=== PATIENT | female | born 1970 | race African-American/Black ===

== ENCOUNTER 2022-07-17 09:56 | Inpatient (IN) | payer OTHER ==
[2022-07-17] MEDS: ELECTROLYTE-148 SOLN 1,000 ML IV SCH (10:30)
[2022-07-17 11:38] VITALS: BMI 35.2
[2022-07-17] MEDS ORDERED: ONDANSETRON 4 MG/2 ML VIAL IVPUSH PRN (14:24)
[2022-07-17] MEDS ORDERED: FENTANYL CITRATE/PF 50 MCG/ML VIAL ONE (14:33)
[2022-07-17] MEDS ORDERED: morphine SULFATE (PF) 1 MG/2 ML SYRINGE ONE (14:33)
[2022-07-17] MEDS ORDERED: ceFAZolin SODIUM 1 GM VIAL ONE (14:52)
[2022-07-17] MEDS ORDERED: ONDANSETRON 4 MG/2 ML VIAL ONE (14:54)
[2022-07-17] MEDS ORDERED: OXYTOCIN 10 UNITS/ML VIAL ONE ×2 (15:02→15:36)
[2022-07-17] MEDS ORDERED: CITRIC ACID/SODIUM CITRATE 30 ML UNIT-DOSE CUP PO ONE (16:09)
[2022-07-17] MEDS ORDERED: ACETAMINOPHEN 325 MG TABLET (FP) PO PRN (16:11)
[2022-07-17] MEDS ORDERED: SENNOSIDES/DOCUSATE COMBO (SENNA PLUS) TABLET (UD) PO PRN (16:11)
[2022-07-17] MEDS ORDERED: ELECTROLYTE-148 SOLN 1,000 ML IV SCH (16:15)
[2022-07-17] MEDS: IBUPROFEN 800 MG/8 ML IJ IVPB PRN (20:30)
[2022-07-17] MEDS: FERROUS SO4 325 MG TABLET (FP) PO SCH (22:09)
[2022-07-17] MEDS: OXYTOCIN 20 UNITS in 0.9% NS 20 UNIT/1,000 ML INFUS.BAG IV SCH (22:10)
[2022-07-18] MEDS: METHYLERGONOVINE MALEATE 0.2 MG/1 ML AMP IM PRN ×2 (00:16→03:24)
[2022-07-18] MEDS: OXYTOCIN 20 UNITS in 0.9% NS 20 UNIT/1,000 ML INFUS.BAG IV SCH (01:43)
[2022-07-18] MEDS ORDERED: oxyCODONE HCL 5 MG TABLET PO PRN ×2 (04:11)
[2022-07-18] MEDS: IBUPROFEN 800 MG/8 ML IJ IVPB PRN (07:01)
[2022-07-18 08:26] LABS: BASO % 0.1 % (0-2.0); HEMATOCRIT 37.1 % (32.4-45.2); HEMOGLOBIN 12.5 GM/dL (10.7-15.3); LYMPH % 7.7 % (8-40); MCHC 33.7 g/dl (32.0-36.0); MEAN CELL VOLUME 86.1 fl (80-96); MEAN PLT VOLUME 8.8 fl (7.5-11.1); MONO % 11.1 % (3.8-10.2); NEUT % 81.1 % (42.8-82.8); PLATELET COUNT 167 10^3/uL (134-434); RBC 4.31 M/mm3 (3.60-5.2); RDW 14.1 % (11.6-15.6); WHITE BLOOD COUNT 9.9 K/mm3 (4.0-10.0)
[2022-07-18] MEDS: PRENATAL VITAMINS W/ FOLIC ACID TABLET (FP) PO SCH (09:48)
[2022-07-18] MEDS: FERROUS SO4 325 MG TABLET (FP) PO SCH ×2 (09:48→21:13)
[2022-07-18] MEDS ORDERED: ceFAZolin SODIUM 1 GM VIAL IVPB ONE (15:00)
[2022-07-18] MEDS ORDERED: ceFAZolin 2 GRAM PREMIX BAG IVPB ONE (15:05)
[2022-07-18] MEDS ORDERED: CEFAZOLIN 2 GM in DEXTROSE 5%-WATER 100 ML IVPB ONE (15:30)
[2022-07-18] MEDS: IBUPROFEN 600 MG TABLET (FP) PO PRN ×2 (15:52→20:40)
[2022-07-18] MEDS: SIMETHICONE 80 MG TAB.CHEW (FP) PO PRN ×2 (15:52→20:41)
[2022-07-18] MEDS ORDERED: BISACODYL 10 MG SUPP.RECT RC PRN (16:11)
[2022-07-19] MEDS: SIMETHICONE 80 MG TAB.CHEW (FP) PO PRN ×3 (01:33→17:56)
[2022-07-19] MEDS: IBUPROFEN 600 MG TABLET (FP) PO PRN ×4 (01:33→23:15)
[2022-07-19] MEDS: FERROUS SO4 325 MG TABLET (FP) PO SCH ×2 (09:30→22:47)
[2022-07-19] MEDS: PRENATAL VITAMINS W/ FOLIC ACID TABLET (FP) PO SCH (09:30)
[2022-07-19] MEDS: ELECTROLYTE-148 SOLN 1,000 ML IV SCH (20:03)
[2022-07-19] MEDS: OXYTOCIN 20 UNITS in 0.9% NS 20 UNIT/1,000 ML INFUS.BAG IV SCH (20:05)
[2022-07-19 21:29] VITALS: TEMP 97.9
[2022-07-20] MEDS: IBUPROFEN 600 MG TABLET (FP) PO PRN (08:15)
[2022-07-20] MEDS: SIMETHICONE 80 MG TAB.CHEW (FP) PO PRN (08:15)
[2022-07-20] MEDS: PRENATAL VITAMINS W/ FOLIC ACID TABLET (FP) PO SCH (09:27)
[2022-07-20] MEDS: FERROUS SO4 325 MG TABLET (FP) PO SCH (09:27)
[2022-07-20 13:49] VITALS: BP 126/71; PULSE 76; RESP 17
== END 2022-07-20 12:10 | disposition home or self-care (01) | DRG 785 ==
LOC: JLDR 09:56 → J3W 18:00
PROVIDERS: ADMIT Obstetrics & Gynecology; ATTEND Obstetrics & Gynecology
PROC: 10D00Z1 Extraction of Products of Conception, Low, Open Approach (ICD-10-PCS; principal; 2022-07-17)
PROC: 0UL70ZZ Occlusion of Bilateral Fallopian Tubes, Open Approach (ICD-10-PCS; 2022-07-17)
PROC: 0DNW0ZZ Release Peritoneum, Open Approach (ICD-10-PCS; 2022-07-17)
DX: O34.211 Maternal care for low transverse scar from previous cesarean delivery (principal); O99.892 Other specified diseases and conditions complicating childbirth; N73.6 Female pelvic peritoneal adhesions (postinfective); Z3A.38 38 weeks gestation of pregnancy; Z37.0 Single live birth; Z30.2 Encounter for sterilization
CPT/HCPCS: 36415; 85025; 86762; 88302-TC; 88307-TC